=== PATIENT | male | born 1960 | race Caucasian/White ===

== ENCOUNTER → 2021-03-26 00:03 | Outpatient (CLI) | payer BC, SELFPAY ==
[2021-03-26 12:32] LABS: SARS-CoV-2 RNA PCR Negative
== END ==
PROVIDERS: Visit Provider Internal Medicine Gastroenterology
DX: Z01.812 Encounter for preprocedural laboratory examination (principal); Z20.822 Contact with and (suspected) exposure to COVID-19
CPT/HCPCS: C9803; U0003; U0005

== ENCOUNTER 2021-03-29 01:44 | Day surgery (SDC) | payer BC, SELFPAY ==
[2021-03-14 15:48] VITALS: BMI 27.9
[2021-03-29 07:45] VITALS: BP 115/74; PULSE 85; RESP 20; TEMP 36.5; O2SAT 99; BMI 27.6
[2021-03-29] MEDS: LACTATED RINGERS 1,000 ML 150 ML IV CONT (07:52)
--- NOTE | 2021-03-29 08:14 | WPDGICN ---
Assessment and Plan Assessment and plan (1) History of colon polyps: Code(s): Z86.010 - Personal history of colonic polyps Status: Acute Assessment and Plan: Patient was found to have adenomatous colon polyp removed the colon 2016. He presents today for surveillance exam. (2) Family history of colonic polyps: Code(s): Z83.71 - Family history of colonic polyps Status: Acute Assessment and Plan: Patient's father has had colon polyps suggesting this tendency runs to family. Plan is for surveillance colonoscopy at least every 5 years. GI Consult Note Consult date/time: 03/29/21 08:14 HPI: Charles Lopez is a 61 year old male Presents for screening colonoscopy. Patient has a history of colon polyps in the past. Most recent colonoscopy 2016 revealed a benign adenoma removed from the colon. Family history is significant patient's father has had colon polyps. Patient denies any change in bowel habits. He has had no blood in his stools. He presents today for neoplasia screening. Review of Systems Review of Systems: All systems reviewed & are unremarkable except as noted in HPI and below PMFSH Social History Social History Smoking status: Current some day smoker Tobacco type: cigars Alcohol intake: current Drinks per week: 5 Living arrangements: with family Spiritual care concerns: No Meds Home Medications and Allergies Home Medications Medication Instructions Recorded Confirmed Type rosuvastatin 5 mg PO DAILY 03/14/21 03/14/21 History Allergies Allergy/AdvReac Type Severity Reaction Status Date / Time No Known Allergies Allergy Verified 03/29/21 07:44 Vital Signs Vital Signs - 24 hr 03/29/21 07:45 Temperature 97.7 F Pulse Rate 85 Respiratory Rate 20 Blood Pressure 115/74 Pulse Oximetry 99 Exam Narrative: Physical exam reveals patient to be alert. Vital signs stable. HEENT exam is unremarkable. Patient is anicteric. Lungs are clear to auscultation and percussion. Heart is without murmur or extra sounds. Abdominal exam bowel sounds are present soft nontender with no organomegaly. Digital external rectal exam is normal.
--- NOTE | 2021-03-29 08:46 | P.PNAN_ITS ---
Anes - Initial Pre Proc Eval Procedure: Operation Date: 03/29/21 09:00 Proposed Procedures p Screening Colonoscopy - Akhil Harris MD Date/Time: 03/29/21 08:46 Surgeon: Akhil Harris MD Pre Op Diagnosis: neoplasm screening Patient Data Age: 61 Gender: M Height: 1.8 m Weight: 90 kg Last Vital Signs Temp 97.7 F 03/29/21 07:45 Pulse 85 03/29/21 07:45 Resp 20 03/29/21 07:45 BP 115/74 03/29/21 07:45 Pulse Ox 99 03/29/21 07:45 Allergies Allergy/AdvReac Type Severity Reaction Status Date / Time No Known Allergies Allergy Verified 03/29/21 07:44 Home Medications Medication Instructions Recorded Confirmed Type rosuvastatin 5 mg PO DAILY 03/14/21 03/14/21 History Patient hx anesthesia problems: none Family hx anesthesia problems: none Results Review: All pre-operative results and documents have been reviewed as part of the pre-operative evaluation. [facility] Social History Social History Smoking status: Current some day smoker Tobacco type: cigars Alcohol intake: current Drinks per week: 5 Living arrangements: with family Spiritual care concerns: No Anes - Eval Final PreProcedure Day of Procedure 03/29/21 08:46 Patient weight: normal Heart: regular rate and rhythm Lungs: clear to auscultation Airway: Mallampati scale class II Neurological: alert and oriented Last oral intake: >/= 8 hours ASA classification: II Emergent: no Anesthetic plan: proceed Anesthesia type and monitoring: general GIVS and standard monitoring Results Review: All pre-operative results and documents have been reviewed as part of the pre-operative evaluation. Informed Consent: The patient's anesthetic plan and its attendant risks and benefits were discussed with the patient/family/POA. Questions were solicited and answers provided to the satisfaction of the patient/family/POA.
[2021-03-29 09:10] VITALS: BP 96/73; PULSE 75; RESP 19; O2SAT 97
[2021-03-29 09:20] VITALS: BP 113/55; PULSE 86; RESP 22; O2SAT 97
[2021-03-29 09:30] VITALS: BP 119/82; PULSE 72; RESP 24; O2SAT 97
== END 2021-03-29 09:30 | disposition home or self-care (01) ==
PROVIDERS: Visit Provider Internal Medicine Gastroenterology
PROC: 0DJD8ZZ Inspection of Lower Intestinal Tract, Via Natural or Artificial Opening Endoscopic (ICD-10-PCS; CPT 45378; principal; 2021-03-29 09:00)
DX: Z12.11 Encounter for screening for malignant neoplasm of colon (principal); K63.5 Polyp of colon; Z83.71 Family history of colonic polyps; F17.290 Nicotine dependence, other tobacco product, uncomplicated
CPT/HCPCS: 45380; 88305; J2704; J7120